=== PATIENT | female | born 1950 | race Caucasian/White ===

== ENCOUNTER 2016-11-22 14:06 | Inpatient (IN) ==
[2016-12-08 17:06] LABS: Basophils # (Auto) 0 K/mcL (0.0-0.3); Basophils % (Auto) 0.2 % (0.0-2.0); Eosinophils # (Auto) 0.1 K/mcL (0.0-0.7); Eosinophils % (Auto) 0.9 % (0.0-7.0); Granulocytes % (Auto) 59.1 % (38.0-78.0); Lymphocytes # (Auto) 4.1 K/mcL (1.5-4.8); Mean Cell Volume 93.6 fL (80.0-100.0); Mean Corpuscular HGB Conc 33.6 g/dL (31.0-36.0); Mean Corpuscular Hemoglobin 31.4 pg (26.0-34.0); Monocytes # (Auto) 0.8 K/mcL (0.1-0.9); Monocytes % (Auto) 6.8 % (1.0-12.0); Platelet Count 205 K/mcL (140-440); RBC 4.21 M/mcL (4.00-5.20); Red Cell Distribution Width 15.2 % (11.5-14.5)
[2016-12-08 17:39] LABS: Appearance,Urine HAZY; Bacteria,Urine MOD /hpf (0); Bilirubin,Urine NEG (NEG); Color,Urine YELLOW; Glucose,Urine (UA) NEGATIVE (NEG); Leukocyte Esterase,Urine 75 /uL (NEG); Mucus,Urine FEW /hpf (0); Nitrate,Urine NEG (NEG); Protein,Urine NEG (NEG); Specific Gravity,Urine 1.014 (1.000-1.035); Urine Blood NEG mg/dL (<0.03); Urine Hyaline Cast 1 /lpf (0-2); Urine RBC 0 /hpf (0-1); Urine Squamous Epithelial Cell 9 /hpf (0-4); Urine WBC 22 /hpf (0-4)
[2016-12-08 17:44] LABS: Blood Urea Nitrogen 12 mg/dl (8-23)
[2016-12-14] MEDS ORDERED: CELECOXIB 200 MG CAPSULE PO SCH (05:00)
[2016-12-14] MEDS ORDERED: ceFAZolin 1 GM VIAL IV SCH (05:00)
[2016-12-14] MEDS ORDERED: PREGABALIN 75 MG CAPSULE PO SCH (05:00)
[2016-12-14] MEDS ORDERED: oxyCODONE 10 MG TAB.ER.12H PO SCH (05:00)
[2016-12-14] MEDS ORDERED: DEXAMETHASONE 10 MG/ML VIAL IV ONE (07:45)
[2016-12-14] MEDS ORDERED: TRANEXAMIC ACID 1,000 MG/10 ML VIAL IV ONE ×2 (07:45→09:06)
[2016-12-14] MEDS ORDERED: HYDROmorphone 2 MG/ML SYRINGE IV ONE (07:45)
[2016-12-14] MEDS ORDERED: PROPOFOL 200 MG/20 ML VIAL IV ONE (07:45)
[2016-12-14] MEDS ORDERED: LIDOCAINE HCL/PF 100 MG/5 ML SYRINGE IV ONE (07:45)
[2016-12-14] MEDS ORDERED: MIDAZOLAM 5 MG/5 ML VIAL IV ONE (07:45)
[2016-12-14] MEDS ORDERED: fentaNYL 100 MCG/2 ML VIAL IV ONE (07:45)
[2016-12-14] MEDS ORDERED: ONDANSETRON 4 MG/2 ML VIAL IV ONE (07:45)
[2016-12-14] MEDS ORDERED: GENTAMICIN SULFATE 800 MG/20 ML VIAL IR ONE (08:30)
[2016-12-14] MEDS ORDERED: fentaNYL 100 MCG/2 ML VIAL IV PRN (08:47)
[2016-12-14] MEDS ORDERED: ONDANSETRON 4 MG/2 ML VIAL IV PRN ×2 (08:47→09:06)
[2016-12-14] MEDS ORDERED: diphenhydrAMINE 50 MG/ML VIAL IV PRN (08:47)
[2016-12-14] MEDS ORDERED: LACTATED RINGERS 250 ML IV PRN (08:47)
[2016-12-14] MEDS ORDERED: IPRATROPIUM/ALBUTEROL 3 ML AMPUL.NEB NEB PRN (08:47)
[2016-12-14] MEDS ORDERED: FLUMAZENIL 0.1 MG/ML ML IV PRN (08:47)
[2016-12-14] MEDS ORDERED: METHOCARBAMOL 1,000 MG/10 ML VIAL IV PRN (08:47)
[2016-12-14] MEDS ORDERED: BENZOCAINE/MENTHOL 1 LOZENGE PO PRN ×2 (08:47→09:06)
[2016-12-14] MEDS ORDERED: MEPERIDINE 25 MG/ML SYRINGE IV PRN (08:47)
[2016-12-14] MEDS ORDERED: HYDROmorphone 2 MG/ML SYRINGE IV PRN (08:47)
[2016-12-14] MEDS ORDERED: ACETAMINOPHEN 1,000 MG/100 ML BOTTLE IV ONE (08:47)
[2016-12-14] MEDS ORDERED: NALOXONE HCL 0.4 MG/ML VIAL IV PRN (08:47)
[2016-12-14] MEDS ORDERED: LACTATED RINGERS 1,000 ML IV SCH (09:00)
[2016-12-14] MEDS ORDERED: MAGNESIUM HYDROXIDE 30 ML ORAL.SUSP PO PRN (09:06)
[2016-12-14] MEDS ORDERED: POLYETHYLENE GLYCOL 3350 17 GM PACKET PO PRN (09:06)
[2016-12-14] MEDS ORDERED: FLEETS ADULT ENEMA PR PRN (09:06)
[2016-12-14] MEDS ORDERED: BISACODYL 10 MG SUPP.RECT PR PRN (09:06)
--- NOTE | 2016-12-14 09:06 | Brief Operative Note ---
Date of procedure: 12/14/16 Pre-op diagnosis: right hip oa Post-op diagnosis: same Procedure: right total hip arthroplasty Grafts/Implants: Yes Anesthesia: GETA Findings: oa hip Complications: none Surgeon: Tio Ignacio Fifth Hand: Lalo Ch Estimated blood loss (cc): 100 Specimens Removed/Pathology: none sent Condition: stable Disposition: PACU
[2016-12-14] MEDS ORDERED: DEXTROSE 50% 50 ML VIAL IV PRN (09:11)
[2016-12-14] MEDS ORDERED: DEXTROSE 31 GM ORAL.SUSP PO PRN (09:11)
--- NOTE | 2016-12-14 10:06 | XRay Report ---
CLINICAL INFORMATION: Postsurgical follow-up TECHNIQUE: AP and crosstable lateral right hip COMPARISON: None. FINDINGS: Status post right total hip arthroplasty. Femoral and acetabular complements are in anatomic positions. Pelvis and left hip are negative. IMPRESSION: Right total hip arthroplasty Interpreted and Authenticated by: Tio Melvin 12/14/16
[2016-12-14] MEDS: 0.9 % SODIUM CHLORIDE 1,000 ML IV SCH ×2 (10:07→18:09)
[2016-12-14] MEDS: HYDROmorphone 2 MG/ML SYRINGE IV PRN ×4 (11:31→23:51)
--- NOTE | 2016-12-14 11:37 | Operative Note ---
DATE OF OPERATION: 12/14/2016 PREOPERATIVE DIAGNOSIS: Degenerative joint disease, right hip. POSTOPERATIVE DIGNOSIS: Degenerative joint disease, right hip. PROCEDURE: Right total hip arthroplasty. SURGEON: Jluis Ignacio M.D. PROJECT INTERNSHIP SURGEON: Travis Ch PA-C. ANESTHESIA: Spinal with LMA assist. ESTIMATED BLOOD LOSS: 100 mL. COMPLICATIONS: None noted. SPECIMENS REMOVED: None. DRAINS: None. IMPLANTS: DePuy [place] Gription acetabular shell 52 mm; De[place] cancellous bone screw 6.5 x 30; DePuy [place] Hole Eliminator PS; DePuy [place] Altrx polyethylene acetabular liner lipped 32 x 52; DePuy Tri-Lock BPS femoral stem with Gription size 4 standard; DePuy Biolox delta ceramic femoral head +5, 32 mm diameter. INDICATIONS: The patient has had a longstanding history of worsening pain in the hip that has failed conservative treatment. Radiographs have confirmed advanced degenerative joint disease. After a long discussion about treatment options, the patient elected to proceed with a hip arthroplasty. The risks and benefits were discussed with the patient in detail including, but not limited to, the risks of anesthesia, problems with the heart or lungs related to anesthesia, infection, compromise or injury to the nerves and blood vessels, deep venous thrombosis, pulmonary embolism, pneumonia, continued pain after surgery, worsening pain or symptoms after surgery, swelling, loss of motion, instability, leg length discrepancy, and need for repeat surgery. DESCRIPTION OF PROCEDURE: The patient was seen in pre-anesthesia waiting room where all questions were answered and the correct side and site were identified and marked. The patient was then brought to the operating room and administered the anesthetic and given pre-operative antibiotics. A time-out was then called. The patient was placed in the lateral decubitus position with all prominences well padded using the Gaston frame and the extremity was prepped and draped in the usual sterile fashion. Anesthesia gave the patient 1 gm of tranexamic acid via an intravenous route. A standard posterior approach was made. We dissected through the skin and subcutaneous tissue to the deep fascia. The deep fascia was split in line with the incision and a Charnley retractor was placed. We exposed, tagged, and incised the short external rotators and piriformis tendon and retracted them posteriorly to help protect the sciatic nerve which was palpated throughout the case. We then performed a T-capsulotomy and tagged the capsule edges. Prior to dislocating the hip, we set a length and offset gauge from a Steinmann pin in the iliac wing to a racheal on the greater trochanter. The hip was then dislocated and a femoral neck osteotomy was performed to the pre-surgical templated level off the lesser trochanter. The head was removed and sized. We next turned our attention to the acetabulum. Retractors were placed for optimal visualization. A complete labral excision was performed. The capsule was preserved for later closure. We began reaming using anatomic landmarks with the DePuy [place] acetabular system. We medialized the cup and reamed up to provide good fill and coverage of the trial. When the trial was stable and appropriately positioned with approximately 20 degrees of anteversion and 45 degrees of abduction, we impacted the De[place]uy [place] cup and placed a cancellous screw in the posterior-superior quadrant. Osteophytes were removed from around the shell. We placed the trial liner and turned our attention to the femur. We placed retractors for visualization, internally rotated the femur, and established intramedullary access. We broached using the DePuy Tri-Lock stem to a stable platform medial, lateral, and rotationally with the appropriate version. We then performed a calcar reaming off the broach. Trials were then placed and optimized for leg length and stability. We used the leg length and offset guide to confirm our trials. Best stability, length, and offset characteristics were obtained with these sizes. We removed all trials and impacted the polyethylene acetabular liner in a standard fashion after a thorough irrigation. We then impacted the femoral stem to its broached location and placed the head. Final reduction was performed. Again, good stability, leg length, and offset characteristics were noted. We irrigated with three liters of antibiotic saline. We closed the capsule with #2 FiberWire. We placed a deep drain and closed the fascia with a combination of looped #0 Maxon and #0 Vicryl. We closed the subcutaneous tissue and skin in layers out to pablo in the skin. A sterile pressure dressing and abduction wedge was applied. All needle and sponge counts were correct. The patient was transferred to the recovery room in stable condition. JAIME:fiordaliza Job ID: [id number] Doc ID: [id number] Jluis Ignacio MD
[2016-12-14] MEDS: INSULIN LISPRO 1 UNIT/0.01 ML UNIT SQ SCH ×3 (12:08→20:46)
[2016-12-14] MEDS: 0.9 % SODIUM CHLORIDE 10 ML SYRINGE IV SCH ×2 (14:28→22:18)
[2016-12-14] MEDS: HYDROcodone/APAP 10/325MG TABLET PO PRN ×3 (15:30→23:52)
[2016-12-14] MEDS: ceFAZolin 1 GM VIAL IV SCH ×2 (15:31→22:19)
[2016-12-14] MEDS: SENNOSIDES 1 TABLET PO SCH (20:44)
[2016-12-14] MEDS: DOCUSATE SODIUM 100 MG CAPSULE PO SCH (20:44)
[2016-12-14] MEDS: ATORVASTATIN 20 MG TABLET PO SCH (20:45)
[2016-12-14] MEDS: ASPIRIN 325 MG ENTERIC COATED TABLET PO SCH (20:45)
[2016-12-14] MEDS: AMITRIPTYLINE 25 MG TABLET PO SCH (20:45)
[2016-12-15] MEDS: 0.9 % SODIUM CHLORIDE 1,000 ML IV SCH ×3 (02:14→18:42)
[2016-12-15] MEDS: METHOCARBAMOL 750 MG TABLET PO PRN ×3 (03:17→21:17)
[2016-12-15] MEDS: KETOROLAC 15 MG/ML VIAL IV PRN ×2 (03:17→15:39)
[2016-12-15] MEDS: 0.9 % SODIUM CHLORIDE 10 ML SYRINGE IV SCH ×3 (05:46→21:19)
[2016-12-15] MEDS: HYDROmorphone 2 MG/ML SYRINGE IV PRN ×3 (05:46→13:05)
--- NOTE | 2016-12-15 06:34 | Orthopedic Progress Note ---
Subjective Patient information: Note initiated : 12/15/16 at 6:32 am Service Date, if different from initiated Date: [] Patient: Rona Kovacs 66 y/o F admitted on 12/14/16 for Right Total Hip Arthroplasty. Chief Complaint: [] Interval history: doing ok. hasn't been up. pain under control Objective Vital signs: Vital Signs Temp Pulse Pulse Pulse Resp BP BP 12/15/16 06:25 96.8 F L 20 115/64 12/15/16 03:30 97.9 F 83 16 131/64 12/15/16 00:00 97.9 F 85 16 122/69 12/14/16 20:00 98.6 F 93 H 12 127/70 12/14/16 17:11 97.8 F 16 118/75 12/14/16 15:45 97.1 F 83 97 H 16 121/72 12/14/16 15:07 12/14/16 13:15 97 F 101 H 16 119/74 12/14/16 12:46 96.6 F L 96 H 16 117/79 12/14/16 11:46 96.8 F L 93 H 16 140/73 12/14/16 11:16 96.4 F L 100 H 16 143/69 12/14/16 11:01 96.4 F L 97 H 16 159/84 12/14/16 10:46 96.3 F L 94 H 16 160/87 12/14/16 10:32 96.4 F L 98 H 16 164/84 12/14/16 10:16 96.4 F L 98 H 16 152/84 12/14/16 10:10 97.1 F 100 H 14 146/71 12/14/16 09:58 97.1 F 100 H 14 171/79 12/14/16 09:53 97.1 F 100 H 14 160/87 12/14/16 09:48 97.1 F 101 H 14 147/85 12/14/16 09:43 97.1 F 97 H 14 150/85 12/14/16 09:38 96.8 F L 86 14 151/68 12/14/16 09:33 96.8 F L 86 14 151/78 12/14/16 09:28 96.8 F L 86 14 126/60 Pulse Ox 12/15/16 06:25 94 12/15/16 03:30 93 12/15/16 00:00 12/14/16 20:00 92 12/14/16 17:11 97 12/14/16 15:45 97 12/14/16 15:07 97 12/14/16 13:15 96 12/14/16 12:46 96 12/14/16 11:46 98 12/14/16 11:16 97 12/14/16 11:01 97 12/14/16 10:46 93 12/14/16 10:32 93 12/14/16 10:16 94 12/14/16 10:10 95 12/14/16 09:58 97 12/14/16 09:53 97 12/14/16 09:48 97 12/14/16 09:43 97 12/14/16 09:38 97 12/14/16 09:33 97 12/14/16 09:28 97 Intake and Output 12/14/16 12/15/16 12/15/16 21:59 05:59 13:59 Intake Total 1000 / 1000 981 / 981 Output Total 501 / 501 525 / 525 Balance 499 / 499 456 / 456 Intake: IV 1000 / 1000 981 / 981 Sodium Chloride 0.9% 1, 1000 / 1000 981 / 981 000 ml @ 125 mls/hr IV . Q8H [facility] Rx#:[id number] Output: Void Amount 500 / 500 525 / 525 # of times incontinent of 1 / 1 urine Other: Meal fruit and small piece of cake Percent of Meal Consumed 100% Feeding Ability Independent # Voids 1 Weight 182 lb Intake & Output: Intake & Output 12/14/16 12/15/16 12/15/16 21:59 05:59 13:59 Intake Total 1000 / 1000 981 / 981 Output Total 501 / 501 525 / 525 Balance 499 / 499 456 / 456 Weight 182 lb Intake: IV 1000 / 1000 981 / 981 Sodium Chloride 0.9% 1, 1000 / 1000 981 / 981 000 ml @ 125 mls/hr IV . Q8H [facility] Rx#:[id number] Output: Void Amount 500 / 500 525 / 525 # of times incontinent of 1 / 1 urine Other: Meal fruit and small piece of cake Percent of Meal Consumed 100% Feeding Ability Independent # Voids 1 Incision: Yes healing Incision clean and dry: Yes Dressing: Yes clean, Yes dry, Yes intact Weight bearing status: full Neurological exam IM: Yes abnormal gait, Yes alert, Yes oriented X3, Yes motor sensory intact, Yes neurovascular intact Extremities exam IM: No calf tenderness, Yes Foot pink and warm, Yes neurovascular intact - Labs CBC & BMP: 12/08/16 15:24 12/08/16 15:23 Labs: Orthopedic Labs 12/08/16 15:23 PT 13.6 INR 1.0 12/15/16 12/08/16 04:46 15:24 Hgb Pending 13.2 Hct Pending 39.4 Assessment and Plan (1) Hip osteoarthritis pod 1 s/p right total hip arthroplasty wbat posterior hip precautions pain control dvt prophylaxis d/c planning - home tomorrow if passes pt Status: Acute
[2016-12-15] MEDS: OMEPRAZOLE 20 MG CAPSULE PO SCH (07:06)
[2016-12-15] MEDS: LEVOTHYROXINE 75 MCG TABLET PO SCH (07:07)
[2016-12-15] MEDS: LEVOTHYROXINE 150 MCG TABLET PO SCH (07:07)
[2016-12-15] MEDS: INSULIN LISPRO 1 UNIT/0.01 ML UNIT SQ SCH ×4 (07:11→21:17)
[2016-12-15] MEDS: metFORMIN 500 MG TAB.XL.24H PO SCH (07:49)
[2016-12-15] MEDS ORDERED: LISINOPRIL/HCTZ 10/12.5MG TABLET PO SCH (09:00)
[2016-12-15] MEDS: DOCUSATE SODIUM 100 MG CAPSULE PO SCH ×2 (09:25→21:17)
[2016-12-15] MEDS: LISINOPRIL 10 MG TABLET PO SCH (09:25)
[2016-12-15] MEDS: ASPIRIN 325 MG ENTERIC COATED TABLET PO SCH ×2 (09:25→21:16)
[2016-12-15] MEDS: HYDROcodone/APAP 10/325MG TABLET PO PRN ×4 (09:25→21:17)
[2016-12-15] MEDS: HYDROCHLOROTHIAZIDE 12.5 MG CAPSULE PO SCH (09:26)
[2016-12-15] MEDS: ATORVASTATIN 20 MG TABLET PO SCH (21:16)
[2016-12-15] MEDS: AMITRIPTYLINE 25 MG TABLET PO SCH (21:16)
[2016-12-15] MEDS: SENNOSIDES 1 TABLET PO SCH (21:17)
[2016-12-16] MEDS: 0.9 % SODIUM CHLORIDE 1,000 ML IV SCH ×2 (01:11→12:30)
[2016-12-16] MEDS: HYDROcodone/APAP 10/325MG TABLET PO PRN ×3 (01:47→09:59)
[2016-12-16] MEDS: METHOCARBAMOL 750 MG TABLET PO PRN (04:28)
[2016-12-16] MEDS: 0.9 % SODIUM CHLORIDE 10 ML SYRINGE IV SCH (05:48)
--- NOTE | 2016-12-16 06:55 | Discharge Summary ---
Ortho Discharge - MIMI - Patient Instructions Diet: Regular Diet Activity: ambulate with assistive device Total Hip Protocol: Follow activity instructions as provided by Physical Therapy. Dressing Care: May shower in 2 days Additional Dressing Instructions: Leave dermabond in place. Do no soak wound Patient Education: Total Hip Replacement (DC), General Anesthesia (GEN) Additional Instructions: Discharge Instructions: Do the exercises at home that physical therapy gave you. Take your prescription, photo ID, insurance cards, and current medication list with you to your first physical therapy appointment. Take your prescription to fiber picker any medication or equipment (such as walker, crutches, toilet riser or C.P.M.) Wear comfortable clothing for your physical therapy. Weight bearing as tolerated. If you have the Aquacel Ag dressing, leave in place for 7 days then remove. If dressing becomes soiled (turns black), remove and use gauze 4x4 dressing and silvasorb ointment and change daily. Keep incision clean and dry. If you have Dermabond (a dressing with a mesh-like appearance), leave open to air. You may start showering on post op day #2. The Dermabond dressing can get wet, do not scrub dressing. Pat dry. To avoid constipation while taking any narcotic pain medication, take an over the counter stool softener/laxative. Use your Cryocuff or ice packs as directed, on for 20 minutes at a time throughout the day. This and elevation will help with pain and swelling. Call your physician for fevers above 100.5 or pain not controlled by medication. Your prescriptions are with your discharge information. Some medications were electronically transmitted to your pharmacy of choice. - Problem Maintenance (1) Hip osteoarthritis Status: Acute - Follow Up Plan Follow Up Appointments: Tio Ignacio MD [Physician] - 12/27/16 10:00 am Disposition: Home, Self-Care Prognosis: Fair Rehab Potential: Fair Overall status at discharge: patient is progressing back to baseline - Orders For Discharge Prescriptions: Aspirin [Ecotrin] 325 mg PO BID #60 HYDROcodone/APAP 10/325MG [[place] 10/325Mg] 1 tab PO Q4HP PRN #30 tablet PRN Reason: Pain
--- NOTE | 2016-12-16 07:00 | Discharge Summary ---
Providers - Providers Patient information: Note initiated : 12/16/16 at 6:58 am Service Date, if different from initiated Date: [] Patient: Rona Kovacs 66 y/o F admitted on 12/14/16 for Right Total Hip Arthroplasty. Chief Complaint: [hip surgery] POD #2 s/p right MIMI. Pain doing very well today. Pain under control. Denies numbness, tingling, calf tenderness. No questions at this time. Discharge date: 12/16/16 Hospitalization Hospital course: Patient was admitted on 12/16/2016 following right MIMI. Has stayed in patient for 2 nights with no significant events. Has been followed by ortho and worked with PT without difficulty. Will d/c to home today. Discharge diagnosis: hip osteoarthritis Exam - Exam Incision healing: Yes Incision draining: No Incision red: No Incision swollen: No Incision inflamed: No Clean and dry: Yes Weight bearing status: as tolerated (with assistive device) Range of motion: knee/ankle ROM intact Ortho Discharge - MIMI - Patient Instructions Diet: Regular Diet Activity: ambulate with assistive device Total Hip Protocol: Follow activity instructions as provided by Physical Therapy. Dressing Care: May shower in 2 days, Other (keep dermabond in place) Patient Education: Total Hip Replacement (DC), General Anesthesia (GEN) Additional Instructions: Discharge Instructions: Do the exercises at home that physical therapy gave you. Take your prescription, photo ID, insurance cards, and current medication list with you to your first physical therapy appointment. Take your prescription to picking crew supervisor any medication or equipment (such as walker, crutches, toilet riser or C.P.M.) Wear comfortable clothing for your physical therapy. Weight bearing as tolerated. If you have the Aquacel Ag dressing, leave in place for 7 days then remove. If dressing becomes soiled (turns black), remove and use gauze 4x4 dressing and silvasorb ointment and change daily. Keep incision clean and dry. If you have Dermabond (a dressing with a mesh-like appearance), leave open to air. You may start showering on post op day #2. The Dermabond dressing can get wet, do not scrub dressing. Pat dry. To avoid constipation while taking any narcotic pain medication, take an over the counter stool softener/laxative. Use your Cryocuff or ice packs as directed, on for 20 minutes at a time throughout the day. This and elevation will help with pain and swelling. Call your physician for fevers above 100.5 or pain not controlled by medication. Your prescriptions are with your discharge information. Some medications were electronically transmitted to your pharmacy of choice. - Problem Maintenance (1) Hip osteoarthritis Status: Acute - Follow Up Plan Follow Up Appointments: Tio Ignacio MD [Physician] - 12/27/16 10:00 am Disposition: Home, Self-Care Prognosis: Fair Rehab Potential: Fair - Orders For Discharge Prescriptions: Aspirin [Ecotrin] 325 mg PO BID #60 HYDROcodone/APAP 10/325MG [[place] 10/325Mg] 1 tab PO Q4HP PRN #30 tablet PRN Reason: Pain Pending Studies Resuscitation Status Full Code Diet Consistent Carbohydrate Diet Start Tue 6 Lunch Hydrocodone Bitart/Acetaminophen ([place] 10/325mg) 0 tab PO Q4HP PRN PRN Reason: Pain Last Admin: 12/16/16 05:46 Dose: 2 tab Admin: 12/16/16 01:47 Dose: 2 tab Admin: 12/15/16 21:17 Dose: 2 tab Admin: 12/15/16 17:31 Dose: 2 tab Admin: 12/15/16 13:05 Dose: 2 tab Admin: 12/15/16 09:25 Dose: 2 tab Admin: 12/14/16 23:52 Dose: 2 tab Admin: 12/14/16 19:25 Dose: 2 tab Admin: 12/14/16 15:30 Dose: 2 tab Amitriptyline HCl (Elavil) 150 mg PO HS [facility] Last Admin: 12/15/16 21:16 Dose: 150 mg Admin: 12/14/16 20:45 Dose: 150 mg Aspirin (Ecotrin) 325 mg PO BID [facility] Last Admin: 12/15/16 21:16 Dose: 325 mg Admin: 12/15/16 09:25 Dose: 325 mg Admin: 12/14/16 20:45 Dose: 325 mg Atorvastatin Calcium (Lipitor) 40 mg PO HS [facility] Last Admin: 12/15/16 21:16 Dose: 40 mg Admin: 12/14/16 20:45 Dose: 40 mg Diagnostic Test (Pha) (Accu-Chek) 1 each FS ACHS [facility] Last Admin: 12/15/16 21:03 Dose: 1 each Admin: 12/15/16 16:59 Dose: 1 each Admin: 12/15/16 11:28 Dose: 1 each Admin: 12/15/16 07:05 Dose: 1 each Admin: 12/14/16 20:32 Dose: 1 each Admin: 12/14/16 17:59 Dose: 1 each Admin: 12/14/16 11:34 Dose: 1 each Docusate Sodium (Colace) 100 mg PO BID [facility] Last Admin: 12/15/16 21:17 Dose: 100 mg Admin: 12/15/16 09:25 Dose: 100 mg Admin: 12/14/16 20:44 Dose: 100 mg Hydrochlorothiazide (Oretic) 12.5 mg PO DAILY [facility] Last Admin: 12/15/16 09:26 Dose: 12.5 mg Hydromorphone HCl (Dilaudid) 0 mg IV Q2HP PRN PRN Reason: Pain Last Admin: 12/15/16 13:05 Dose: 0.5 mg Admin: 12/15/16 09:24 Dose: 0.5 mg Admin: 12/15/16 05:46 Dose: 0.5 mg Admin: 12/14/16 23:51 Dose: 0.5 mg Admin: 12/14/16 19:24 Dose: 0.5 mg Admin: 12/14/16 14:27 Dose: 1 mg Admin: 12/14/16 11:31 Dose: 0.5 mg Sodium Chloride (Sodium Chloride 0.9%) 1,000 mls @ 125 mls/hr IV .Q8H [facility] Last Admin: 12/16/16 01:11 Dose: Admin: 12/15/16 18:42 Dose: Admin: 12/15/16 10:04 Dose: Admin: 12/15/16 02:14 Dose: Infusion: 12/15/16 02:00 Dose: 125 mls/hr Admin: 12/14/16 18:09 Dose: 125 mls/hr Infusion: 12/14/16 18:07 Dose: 125 mls/hr Admin: 12/14/16 10:07 Dose: 125 mls/hr Insulin Human Lispro (Humalog) 0 unit SQ ACHS [facility] PRN Reason: Protocol Last Admin: 12/15/16 21:17 Dose: 2 unit Admin: 12/15/16 17:02 Dose: 2 unit Admin: 12/15/16 11:36 Dose: 4 unit Admin: 12/15/16 07:11 Dose: 4 unit Admin: 12/14/16 20:46 Dose: 6 unit Admin: 12/14/16 18:08 Dose: 8 unit Admin: 12/14/16 12:08 Dose: 4 unit Ketorolac Tromethamine (Toradol) 15 mg IV Q6HP PRN PRN Reason: Pain Stop: 12/16/16 09:08 Last Admin: 12/15/16 15:39 Dose: 15 mg Admin: 12/15/16 03:17 Dose: 15 mg Levothyroxine Sodium (Synthroid) 150 mcg PO QAMAC [facility] Last Admin: 12/15/16 07:07 Dose: 150 mcg Levothyroxine Sodium (Synthroid) 75 mcg PO QAMAC [facility] Last Admin: 12/15/16 07:07 Dose: 75 mcg Lisinopril (Zestril) 10 mg PO DAILY [facility] Last Admin: 12/15/16 09:25 Dose: 10 mg Metformin HCl (Glucophage) 750 mg PO QAC [facility] Last Admin: 12/15/16 07:49 Dose: 750 mg Methocarbamol (Robaxin) 750 mg PO Q6HP PRN PRN Reason: Muscle Spasm Last Admin: 12/16/16 04:28 Dose: 750 mg Admin: 12/15/16 21:17 Dose: 750 mg Admin: 12/15/16 15:39 Dose: 750 mg Admin: 12/15/16 03:17 Dose: 750 mg Omeprazole (Prilosec) 20 mg PO ACB [facility] Last Admin: 12/15/16 07:06 Dose: 20 mg Senna (Senokot) 2 tab PO HS [facility] Last Admin: 12/15/16 21:17 Dose: 2 tab Admin: 12/14/16 20:44 Dose: 2 tab Sodium Chloride (Saline Flush) 10 ml IV Q8 [facility] Last Admin: 12/16/16 05:48 Dose: 10 ml Admin: 12/15/16 21:19 Dose: 10 ml Admin: 12/15/16 13:05 Dose: 10 ml Admin: 12/15/16 05:46 Dose: 10 ml Admin: 12/14/16 22:18 Dose: Not Given Admin: 12/14/16 14:28 Dose: 10 ml Shift Summary 12/16/16 03:25 Shift Summary by Avril Miller Patient is a/o X 4. She is a SBA with a FWW. She ambulated up hallway and back. She is voiding and has had several loose stools. She has been given 2 Hydrocodone 10/325mg X 2 this shift, along with 1 Robaxin with good relief. She has not been given any IV pain medication. Daughter was visiting during the evening and mentioned that the patient would be staying with her. The daughter' s house has stairs. Daughter and patient were reassured that PT would assist with proper mechanics of ambulating up and down stairs. Initialized on 12/16/16 03:25 - END OF NOTE
[2016-12-16] MEDS: INSULIN LISPRO 1 UNIT/0.01 ML UNIT SQ SCH (07:32)
[2016-12-16] MEDS: metFORMIN 500 MG TAB.XL.24H PO SCH (07:32)
[2016-12-16] MEDS: LEVOTHYROXINE 75 MCG TABLET PO SCH (07:33)
[2016-12-16] MEDS: OMEPRAZOLE 20 MG CAPSULE PO SCH (07:34)
[2016-12-16] MEDS: LEVOTHYROXINE 150 MCG TABLET PO SCH (07:34)
[2016-12-16] MEDS: ASPIRIN 325 MG ENTERIC COATED TABLET PO SCH (09:59)
[2016-12-16] MEDS: LISINOPRIL 10 MG TABLET PO SCH (09:59)
[2016-12-16] MEDS: HYDROCHLOROTHIAZIDE 12.5 MG CAPSULE PO SCH (09:59)
[2016-12-16] MEDS: DOCUSATE SODIUM 100 MG CAPSULE PO SCH (10:00)
== END 2016-12-16 12:09 | disposition home or self-care (01) | DRG 470 ==
LOC: MEDSUR 14:06
PROVIDERS: ADMIT Orthopaedic Surgery Sports Medicine; ATTEND Orthopaedic Surgery Sports Medicine

== ENCOUNTER 2018-09-26 05:56 | Inpatient (IN) ==
[2018-09-20 18:04] LABS: Appearance,Urine CLOUDY; Bacteria,Urine MANY /hpf (0); Bilirubin,Urine NEG (NEG); Color,Urine AMBER; Culture Indicated,Urine NO; Glucose,Urine (UA) NEGATIVE (NEG); Ketones,Urine 5/TR mg/dL (NEG); Leukocyte Esterase,Urine 250 /uL (NEG); Nitrate,Urine POS (NEG); Protein,Urine 30 mg/dL (NEG); Specific Gravity,Urine 1.028 (1.000-1.035); Urine Blood NEG mg/dL (<0.03); Urine Hyaline Cast 10 /lpf (0-2); Urine RBC 5 /hpf (0-1); Urine Squamous Epithelial Cell 95 /hpf (0-4); Urine Transitional Epi Cells < 1 /hpf (0-2); Urine WBC 25 /hpf (0-4)
[2018-09-20 19:16] LABS: Basophils # (Auto) 0 K/mcL (0.0-0.3); Basophils % (Auto) 0.2 % (0.0-2.0); Eosinophils # (Auto) 0 K/mcL (0.0-0.7); Eosinophils % (Auto) 0.4 % (0.0-7.0); Granulocytes % (Auto) 67.8 % (38.0-78.0); Hemoglobin 13.4 g/dL (12.0-15.0); Lymphocytes # (Auto) 2.7 K/mcL (1.5-4.8); Lymphocytes % (Auto) 24.4 % (15.5-49.0); Mean Cell Volume 96.4 fL (80.0-100.0); Mean Corpuscular HGB Conc 32.7 g/dL (31.0-36.0); Mean Platelet Volume 9.1 fL (7.4-10.4); Monocytes # (Auto) 0.8 K/mcL (0.1-0.9); Monocytes % (Auto) 7.2 % (1.0-12.0); Platelet Count 168 K/mcL (140-440); RBC 4.26 M/mcL (4.00-5.20); WBC 10.9 K/mcL (4.5-11.0)
[2018-09-20 19:22] LABS: Estimated Average Glucose(eAG) 160 mg/dL; Hemoglobin A1C 7.2 % HGB (4.0-6.0)
[2018-09-20 19:36] LABS: Blood Urea Nitrogen 12 mg/dl (8-23); Calcium 9.8 mg/dl (8.6-10.4); Carbon Dioxide 22 mmol/L (22-30); Chloride 97 mmol/L (96-108); Glomerular Filtration Rate 65; Glucose 208 mg/dL (70-105); Potassium 4.4 mmol/L (3.3-5.1); Sodium 135 mmol/L (133-145)
[2018-09-20 19:53] LABS: Prothrombin Time 12.9 sec (11.9-14.5)
[2018-09-26] MEDS ORDERED: CELECOXIB 200 MG CAPSULE PO SCH (06:00)
[2018-09-26] MEDS ORDERED: ceFAZolin 2 GM in DEXTROSE 5% IN WATER 50 ML IV SCH (06:00)
[2018-09-26] MEDS ORDERED: oxyCODONE 10 MG TAB.ER.12H PO SCH (06:00)
[2018-09-26] MEDS ORDERED: 0.9 % SODIUM CHLORIDE 9 ML, KETOROLAC 30 MG, ROPIVACAINE HCL/PF 49.5 ML, EPINEPHrine 0.... IJ SCH (06:00)
[2018-09-26] MEDS ORDERED: PREGABALIN 75 MG CAPSULE PO SCH (06:00)
[2018-09-26 08:41] LABS: Appearance,Urine CLEAR; Bacteria,Urine 0 /hpf (0); Bilirubin,Urine NEG (NEG); Color,Urine YELLOW; Culture Indicated,Urine NO; Glucose,Urine (UA) NEGATIVE (NEG); Ketones,Urine NEG (NEG); Leukocyte Esterase,Urine NEG /uL (NEG); Nitrate,Urine NEG (NEG); Protein,Urine NEG (NEG); Specific Gravity,Urine 1.021 (1.000-1.035); Urine Blood NEG mg/dL (<0.03); Urine Hyaline Cast 1 /lpf (0-2); Urine RBC 1 /hpf (0-1); Urine Squamous Epithelial Cell 0 /hpf (0-4); Urine WBC 1 /hpf (0-4)
[2018-09-26] MEDS ORDERED: ePHEDrine 50 MG/ML AMPUL IV ONE (09:30)
[2018-09-26] MEDS ORDERED: ROPIVACAINE HCL/PF 20 ML VIAL IJ ONE (09:30)
[2018-09-26] MEDS ORDERED: TRANEXAMIC ACID 1,000 MG/10 ML VIAL IV ONE ×2 (09:30→10:57)
[2018-09-26] MEDS ORDERED: PROPOFOL 200 MG/20 ML VIAL IV ONE (09:30)
[2018-09-26] MEDS ORDERED: MIDAZOLAM 2 MG/2 ML VIAL IV ONE (09:30)
[2018-09-26] MEDS ORDERED: DEXAMETHASONE 10 MG/ML VIAL IV ONE (09:30)
[2018-09-26] MEDS ORDERED: LIDOCAINE HCL/PF 100 MG/5 ML SYRINGE IV ONE (09:30)
[2018-09-26] MEDS ORDERED: KETAMINE 100 MG/ML ML IV ONE (09:30)
[2018-09-26] MEDS ORDERED: ONDANSETRON 4 MG/2 ML VIAL IV ONE (09:30)
[2018-09-26] MEDS ORDERED: GLYCOPYRROLATE 0.2 MG/ML VIAL IV ONE (09:30)
[2018-09-26] MEDS ORDERED: PHENYLEPHRINE 10 MG/ML VIAL IV ONE (09:30)
[2018-09-26] MEDS ORDERED: GENTAMICIN SULFATE 800 MG/20 ML VIAL IR ONE (10:00)
[2018-09-26] MEDS ORDERED: MELATONIN 3 MG TABLET PO PRN (10:56)
--- NOTE | 2018-09-26 10:56 | Brief Operative Note ---
Date of procedure: 09/26/18 Pre-op diagnosis: right knee osteoarthritis Post-op diagnosis: same Procedure: right total knee arthroplasty Grafts/Implants: Yes Anesthesia: spinal Complications: none Surgeon: Tio Ignacio Jewel Oliving Machine Operator: Luli Sibley Estimated blood loss (cc): 150 Tourniquet Time (Minutes): 52 Specimens Removed/Pathology: none sent Condition: stable Disposition: PACU
[2018-09-26] MEDS ORDERED: ONDANSETRON 4 MG/2 ML VIAL IV PRN ×2 (10:57→11:26)
[2018-09-26] MEDS ORDERED: DEXTROSE 50% 50 ML VIAL IV PRN (10:57)
[2018-09-26] MEDS ORDERED: BISACODYL 10 MG SUPP.RECT PR PRN (10:57)
[2018-09-26] MEDS ORDERED: POLYETHYLENE GLYCOL 3350 17 GM PACKET PO PRN (10:57)
[2018-09-26] MEDS ORDERED: BENZOCAINE/MENTHOL 1 LOZENGE PO PRN ×2 (10:57→11:26)
[2018-09-26] MEDS ORDERED: ONDANSETRON 4 MG ODT TABLET SL PRN (10:57)
[2018-09-26] MEDS ORDERED: DEXTROSE 31 GM ORAL.SUSP PO PRN (10:57)
[2018-09-26] MEDS ORDERED: MAGNESIUM HYDROXIDE 30 ML ORAL.SUSP PO PRN (10:57)
[2018-09-26] MEDS ORDERED: FLEETS ADULT ENEMA PR PRN (10:57)
--- NOTE | 2018-09-26 11:24 | Operative Note ---
DATE OF OPERATION: 09/26/2018 PREOPERATIVE DIAGNOSIS: Degenerative joint disease, right knee. POSTOPERATIVE DIAGNOSIS: Degenerative joint disease, right knee. PROCEDURE: Right total knee arthroplasty. SURGEON: Jluis Ignacio M.D. SWEDGER SURGEON: Luli Sibley PA-C. The PA's assistance was required for the safe and efficient completion of the entire case. This provider's expertise and technical skill were required throughout the case. The PA assisted with preoperative coordination, intraoperative retraction, wound closure, dressing and splint application, as well as postoperative documentation and care coordination. ANESTHESIA: Spinal with LMA assist. ESTIMATED BLOOD LOSS: 150 mL. COMPLICATIONS: None noted. SPECIMENS REMOVED: None. DRAINS: None. TOURNIQUET TIME: 52 minutes at 300 mmHg. IMPLANTS: DePuy Attune tibial insert fixed bearing posterior stabilized size 5, 5 mm AOX; DePuy Attune femoral posterior stabilized size 5 right, narrow; DePuy Attune tibial base fixed bearing size 5, cemented; DePuy Attune patella medialized dome 38 mm, cemented AOX; DePuy CMW2 gentamicin bone cement 20 grams x5. INDICATIONS: The patient has had a long-standing history of worsening pain in the knee that has failed conservative treatment. Radiographs have confirmed advanced degenerative joint disease. After a long discussion about treatment options, the patient elected to proceed with a knee arthroplasty. The risks and benefits were discussed with the patient in detail including, but not limited to, the risks of anesthesia, problems with the heart or lungs related to anesthesia, infection, compromise or injury to the nerves and blood vessels, deep venous thrombosis, pulmonary embolism, pneumonia, continued pain after surgery, worsening pain or symptoms after surgery, swelling, loss of motion, instability, leg length discrepancy, and need for repeat surgery. DESCRIPTION OF PROCEDURE: The patient was seen in the pre-anesthesia waiting room where all questions were answered and the correct side and site were identified and marked. The patient was transferred to the operating room and administered the anesthetic and given pre-operative antibiotics. A time-out was then called. The extremity was prepped and draped, exsanguinated, and the tourniquet was inflated to 300 mmHg. A midline skin incision was then made with a standard medial parapatellar arthrotomy. Debridement of the menisci, ACL, and PCL was performed followed by balancing releases in the medial lateral plane. We then established intramedullary access to both the femur and tibia in a standard fashion. The femoral guide abdulkadir was initially placed with the distal femoral guide, pinned into place, and the distal femoral cut was performed and checked with a flat plate. We then turned our attention to the tibia. The intramedullary guide was placed with the proximal tibial cutting block. The block was appropriately positioned off the affected side, varus and valgus was checked with the extra-medullary guide, and the block was pinned into place. The proximal tibial cut was performed and the tibia was prepared for the tibial implant with appropriate rotation. The tibia, femur, and posterior compartment were debrided of osteophytes, loose bodies, and meniscal fragments We then used the gap balancing technique to balance extension with the first two cuts and good balancing was obtained with a 10 millimeter gap block. We turned our attention back to the femur and used the referencing block and implant to size appropriately. Using the gap balancing technique for the flexion space we set our rotation of the femur off the tibial cut. Anesthesia gave the patient 1 gram of Tranexamic Acid via an intravenous route. We placed the 4 in 1 cutting block and made anterior, posterior, and chamfer cuts. Box plasty cuts were then made in a standard fashion for the posterior stabilized prosthesis. We then completed osteophyte release and posterior capsule release from the posterior compartment. Trials were placed and we chose the polyethylene insert thickness that provided the best stability in all planes. With the trials in place, we did a measured resection for a resurfacing patella. We sized the patella and placed the patella trial and performed a lateral facetectomy with the saw and rongeur. Good tracking was obtained. We removed all trials, irrigated and dried all cut surfaces. We cemented the components into place including tibia, femur and patella. We placed a trial liner and held the knee in full extension with the patella compressed while the cement cured. We then removed all excess cement and placed the final polyethylene tibiofemoral component. Irrigation with 3 liters of antibiotic saline was then performed using jet-lavage. We let the tourniquet down and coagulated bleeding vessels. We injected a 100 cubic centimeter volume including Ropivacaine 49.25 cubic centimeters at 5 milligrams per cubic centimeter, Ketorolac 30 milligrams, and Epinephrine 0.5 milligrams into 100 cubic centimeters volume of normal saline. We closed the retinaculum with #2 Stratafix and 0 Vicryl. We closed the subcutaneous tissue and skin in layers out to Dermabond on the skin. A sterile pressure dressing was applied. All needle and sponge counts were correct. The patient was transferred to the recovery room in stable condition. JAIME:[email or web address] Job ID: [id number] Doc ID: [id number] Jluis Ignacio MD
[2018-09-26] MEDS ORDERED: NALOXONE HCL 0.4 MG/ML VIAL IV PRN (11:26)
[2018-09-26] MEDS ORDERED: ACETAMINOPHEN 1,000 MG/100 ML BOTTLE IV ONE (11:26)
[2018-09-26] MEDS ORDERED: METHOCARBAMOL 1,000 MG/10 ML VIAL IV PRN (11:26)
[2018-09-26] MEDS ORDERED: FLUMAZENIL 0.1 MG/ML ML IV PRN (11:26)
[2018-09-26] MEDS ORDERED: IPRATROPIUM/ALBUTEROL 3 ML AMPUL.NEB NEB PRN (11:26)
[2018-09-26] MEDS ORDERED: fentaNYL 100 MCG/2 ML VIAL IV PRN (11:26)
[2018-09-26] MEDS ORDERED: KETOROLAC 15 MG/ML VIAL IV PRN (11:26)
[2018-09-26] MEDS ORDERED: LACTATED RINGERS 250 ML IV PRN (11:26)
[2018-09-26] MEDS ORDERED: LACTATED RINGERS 1,000 ML IV SCH (11:30)
--- NOTE | 2018-09-26 11:48 | XRay Report ---
HISTORY: Postop right knee arthroplasty FINDINGS: There is a well positioned total knee prosthesis. There is no fracture or abnormal soft tissue calcification around the joint. A moderate amount of calcified plaque is present in the popliteal artery. IMPRESSION: Well-positioned right knee prosthesis Interpreted and Authenticated by: Jovon Napoles 09/26/18
[2018-09-26] MEDS: INSULIN LISPRO 1 UNIT/0.01 ML UNIT SQ SCH ×3 (12:32→21:30)
[2018-09-26] MEDS: 0.9 % SODIUM CHLORIDE 1,000 ML IV SCH ×2 (13:42→22:34)
[2018-09-26] MEDS: 0.9 % SODIUM CHLORIDE 10 ML SYRINGE IV SCH ×2 (13:42→22:34)
[2018-09-26] MEDS: KETOROLAC 15 MG/ML VIAL IV SCH ×2 (13:42→17:48)
[2018-09-26] MEDS: HYDROmorphone 2 MG/ML VIAL IV PRN ×3 (14:54→23:30)
[2018-09-26] MEDS: ceFAZolin 1 GM VIAL IV SCH (16:51)
[2018-09-26] MEDS: oxyCODONE/APAP 5/325MG TABLET PO PRN (17:52)
[2018-09-26] MEDS: DOCUSATE SODIUM 100 MG CAPSULE PO SCH (21:10)
[2018-09-26] MEDS: SENNOSIDES 1 TABLET PO SCH (21:11)
[2018-09-26] MEDS: ASPIRIN 81 MG TAB.CHEW PO SCH (21:11)
[2018-09-26] MEDS: ATORVASTATIN 20 MG TABLET PO SCH (21:11)
[2018-09-26] MEDS: AMITRIPTYLINE 25 MG TABLET PO SCH (21:12)
[2018-09-27] MEDS: ceFAZolin 1 GM VIAL IV SCH (00:39)
[2018-09-27] MEDS: KETOROLAC 15 MG/ML VIAL IV SCH ×5 (00:39→23:11)
[2018-09-27] MEDS: INSULIN LISPRO 1 UNIT/0.01 ML UNIT SQ SCH ×5 (00:59→21:24)
[2018-09-27] MEDS: oxyCODONE/APAP 5/325MG TABLET PO PRN ×2 (03:53→04:47)
[2018-09-27 05:22] LABS: Hematocrit 30.7 % (36.0-48.0)
[2018-09-27] MEDS: 0.9 % SODIUM CHLORIDE 10 ML SYRINGE IV SCH ×3 (05:46→21:09)
--- NOTE | 2018-09-27 07:22 | Discharge Summary ---
Ortho Discharge - TKA - Patient Instructions Diet: Consistent Carbohydrate Activity: weight bearing as tolerated Total Knee Protocol: For Total Knee: Start ROM PAT with stationary bike or rocking chair. Work on gaining full extension of knee. Posterior dislocation precautions provided. Hip abductor strengthening and gait training instructions provided. Apply Cryocuff as instructed. Dressing Care: May shower in 2 days, Other (dermabond) - Follow Up Plan Follow Up Appointments: Luli Sibley PA-C [Physician Certified Scrum Master] - 10/11/18 8:40 am Disposition: Home, Self-Care Prognosis: Fair Rehab Potential: Fair I certify that the patient requires SNF services: No Overall status at discharge: patient is progressing back to baseline - Orders For Discharge Prescriptions: Aspirin 81 mg PO BID #28 tab.chew oxyCODONE/APAP [Percocet 10-325Mg] 1 - 2 tab PO Q4-6HP PRN #60 tab PRN Reason: Pain Level 3-6 Additional Discharge Orders: Physical Therapy at Discharge - TKA Location: None Selected Walker Location: None Selected
[2018-09-27] MEDS: OMEPRAZOLE 20 MG CAPSULE PO SCH (07:23)
[2018-09-27] MEDS: LEVOTHYROXINE 75 MCG TABLET PO SCH (07:23)
[2018-09-27] MEDS: HYDROmorphone 2 MG/ML VIAL IV PRN ×3 (07:24→19:19)
--- NOTE | 2018-09-27 07:26 | Orthopedic Progress Note ---
Subjective Patient information: Note initiated : 09/27/18 at 7:23 am Service Date, if different from initiated Date: [] Patient: Rona Kovacs 68 y/o F admitted on 09/26/18 for Right Total Knee Arthroplasty. Chief Complaint: [POD #1 s/p right TKA Patient complaining of severe right knee pain. Was refusing ice to knee because of nerve damage in right foot. Chronically takes Hydrocodone daily for pain and states percocet 5mg isn't working. Ambulating okay. Denies numbness, tingling, CP, SOB or calf pain] Objective Vital signs: Vital Signs Temp Pulse Resp BP Pulse Ox 09/27/18 03:57 98.2 F 74 16 103/54 94 09/26/18 22:34 98.7 F 85 16 117/62 97 09/26/18 18:54 98.1 F 84 16 93/52 94 09/26/18 17:52 107/56 09/26/18 17:15 97.5 F 81 90/52 96 09/26/18 15:01 95 09/26/18 14:00 97.2 F 85 18 121/64 95 09/26/18 13:30 96.8 F L 78 18 110/64 94 09/26/18 13:00 78 18 112/64 92 09/26/18 12:45 78 16 115/60 94 09/26/18 12:30 78 18 92/56 92 09/26/18 12:10 97.4 F 80 14 94/58 93 09/26/18 12:00 97.8 F 83 14 111/56 95 09/26/18 11:55 97.7 F 82 14 109/51 95 09/26/18 11:45 98 F 83 14 107/58 99 09/26/18 11:30 97.8 F 75 14 81/45 100 09/26/18 11:25 76 14 84/46 100 09/26/18 11:20 97.8 F 80 14 97/51 100 09/26/18 11:17 97.2 F 80 14 119/58 100 Intake and Output 09/26/18 09/27/18 09/27/18 21:59 05:59 13:59 Intake Total 400 1390 Output Total 850 700 Balance -450 690 Intake: Oral 400 1390 Output: Void Amount 850 700 Other: Meal Dinner Percent of Meal Consumed 100% Urine Appearance Clear Urine Color Pale Weight 188 lb 3.2 oz Intake & Output: Intake & Output 09/26/18 09/27/18 09/27/18 21:59 05:59 13:59 Intake Total 400 1390 Output Total 850 700 Balance -450 690 Weight 188 lb 3.2 oz Intake: Oral 400 1390 Output: Void Amount 850 700 Other: Meal Dinner Percent of Meal Consumed 100% Urine Appearance Clear Urine Color Pale Incision: Yes healing, No draining, No red, No swollen, No inflamed, Yes clean and dry Incision clean and dry: Yes Dressing: Yes clean, Yes dry, Yes intact Weight bearing status: as tolerated Neurological exam IM: Yes alert, Yes oriented X3, Yes motor sensory intact, Yes neurovascular intact Additional Comments: full foot and ankle Extremities exam IM: Yes normal capillary refill, Yes Foot pink and warm, Yes neurovascular intact - Periperhal Pulses Peripheral pulses: 2+: dorsalis pedis (L), dorsalis pedis (R), posterior tibialis (L), posterior tibialis (R) - Labs CBC & BMP: 09/27/18 04:35 09/20/18 15:41 Labs: Orthopedic Labs 09/20/18 15:42 PT 12.9 INR 1.0 09/27/18 09/20/18 04:35 15:42 Hgb 10.0 L 13.4 Hct 30.7 L 41.0 Assessment and Plan (1) Knee osteoarthritis POD #1 s/p right TKA: -d/c to home today pending pain control. Patient verbally agreed and understands that we will fill one Rx of Percocet 10mg initially but will decrease to 5mg there after. She chronically takes hydrocodone and understands she is tolerant to pain meds -I recommended she try icing on the knee as it's above the foot and it'll help with the pain. Ice on top of layers to decrease sensitivity -WBAT -PT -ASA 81mg BID x 14 days -f/u in office 10-14 days for PO -dermabond Status: Acute
[2018-09-27] MEDS: oxyCODONE/APAP 10/325MG TABLET PO PRN ×4 (08:32→21:23)
[2018-09-27] MEDS: metFORMIN 500 MG TAB.XL.24H PO SCH (08:32)
[2018-09-27] MEDS: ASPIRIN 81 MG TAB.CHEW PO SCH ×2 (08:50→21:09)
[2018-09-27] MEDS: DOCUSATE SODIUM 100 MG CAPSULE PO SCH ×2 (08:50→21:09)
[2018-09-27] MEDS ORDERED: LISINOPRIL/HCTZ 10/12.5MG TABLET PO SCH (09:00)
[2018-09-27] MEDS: HYDROCHLOROTHIAZIDE 12.5 MG CAPSULE PO SCH (09:07)
[2018-09-27] MEDS: LISINOPRIL 10 MG TABLET PO SCH (09:08)
[2018-09-27] MEDS ORDERED: PNEUMOCOCCAL 23-VAL P-SAC VAC 0.5 ML SYRINGE IM ONE (10:00)
[2018-09-27] MEDS: ATORVASTATIN 20 MG TABLET PO SCH (21:08)
[2018-09-27] MEDS: AMITRIPTYLINE 25 MG TABLET PO SCH (21:09)
[2018-09-27] MEDS: SENNOSIDES 1 TABLET PO SCH (21:09)
[2018-09-27] MEDS: METHOCARBAMOL 750 MG TABLET PO PRN (21:23)
[2018-09-28] MEDS: oxyCODONE/APAP 10/325MG TABLET PO PRN ×3 (01:44→11:37)
[2018-09-28 05:24] LABS: Hematocrit 29.5 % (36.0-48.0); Hemoglobin 9.8 g/dL (12.0-15.0)
[2018-09-28] MEDS: KETOROLAC 15 MG/ML VIAL IV SCH (06:15)
[2018-09-28] MEDS: METHOCARBAMOL 750 MG TABLET PO PRN ×2 (06:15→11:37)
--- NOTE | 2018-09-28 06:57 | Orthopedic Progress Note ---
Subjective Patient information: Note initiated : 09/28/18 at 6:56 am Service Date, if different from initiated Date: [] Patient: Rona Kovacs 68 y/o F admitted on 09/26/18 for Right Total Knee Arthroplasty. Chief Complaint: [] Interval history: still painful. slow to mobilize Objective Vital signs: Vital Signs Temp Pulse Resp BP Pulse Ox 09/28/18 04:26 98.9 F 77 14 115/66 93 09/27/18 23:20 98.4 F 74 14 134/67 92 09/27/18 19:13 98.7 F 77 16 111/59 95 09/27/18 15:27 98.3 F 68 16 106/57 94 09/27/18 14:52 98.5 F 81 16 100/59 96 09/27/18 11:15 98.3 F 70 14 108/59 89 L 09/27/18 08:24 93 09/27/18 08:15 98.5 F 77 18 101/57 89 L 09/27/18 08:00 98.5 F 73 18 106/62 96 09/27/18 07:31 75 100/61 91 Intake and Output 09/27/18 09/28/18 09/28/18 21:59 05:59 13:59 Intake Total 400 425 Output Total 450 675 Balance -50 -250 Intake: Oral 400 425 Output: Void Amount 450 675 Other: Meal Dinner cake and strawberries at hs Percent of Meal Consumed 75% 100% Feeding Ability Independent Urine Appearance Clear Clear Urine Color Pale Bright Yellow Urine Odor Normal Normal Weight 186 lb Intake & Output: Intake & Output 09/27/18 09/28/18 09/28/18 21:59 05:59 13:59 Intake Total 400 425 Output Total 450 675 Balance -50 -250 Weight 186 lb Intake: Oral 400 425 Output: Void Amount 450 675 Other: Meal Dinner cake and strawberries at hs Percent of Meal Consumed 75% 100% Feeding Ability Independent Urine Appearance Clear Clear Urine Color Pale Bright Yellow Urine Odor Normal Normal Incision: Yes healing Incision clean and dry: Yes Dressing: Yes clean, Yes dry, Yes intact Weight bearing status: full Neurological exam IM: Yes abnormal gait, Yes alert, Yes oriented X3, Yes motor sensory intact, Yes neurovascular intact Extremities exam IM: No calf tenderness, Yes Foot pink and warm, Yes neurovascular intact - Labs CBC & BMP: 09/28/18 04:32 09/20/18 15:41 Labs: Orthopedic Labs 09/20/18 15:42 PT 12.9 INR 1.0 09/28/18 09/27/18 09/20/18 04:32 04:35 15:42 Hgb 9.8 L 10.0 L 13.4 Hct 29.5 L 30.7 L 41.0 Assessment and Plan (1) Knee osteoarthritis pod 2 s/p right tka wbat pain control dvt prophylaxis d/c planning - home today or tomorrow Status: Acute
[2018-09-28] MEDS: OMEPRAZOLE 20 MG CAPSULE PO SCH (07:33)
[2018-09-28] MEDS: LEVOTHYROXINE 75 MCG TABLET PO SCH (07:34)
[2018-09-28] MEDS: INSULIN LISPRO 1 UNIT/0.01 ML UNIT SQ SCH ×2 (07:37→11:38)
[2018-09-28] MEDS: 0.9 % SODIUM CHLORIDE 10 ML SYRINGE IV SCH (07:37)
[2018-09-28] MEDS: metFORMIN 500 MG TAB.XL.24H PO SCH (08:25)
[2018-09-28] MEDS: HYDROCHLOROTHIAZIDE 12.5 MG CAPSULE PO SCH (08:25)
[2018-09-28] MEDS: DOCUSATE SODIUM 100 MG CAPSULE PO SCH (08:25)
[2018-09-28] MEDS: ASPIRIN 81 MG TAB.CHEW PO SCH (08:25)
[2018-09-28] MEDS: LISINOPRIL 10 MG TABLET PO SCH (08:25)
== END 2018-09-28 14:50 | disposition home or self-care (01) | DRG 470 ==
LOC: MEDSUR 05:56
PROVIDERS: ADMIT Orthopaedic Surgery Sports Medicine; ATTEND Orthopaedic Surgery Sports Medicine